=== PATIENT | male | born 1985 | race Hispanic/Latino ===

== ENCOUNTER 2022-03-02 13:51 | Emergency (ER) | payer OTHER ==
[~2022-03-02] VITALS: Ht 165.1 cm; Wt 104.3 kg
[2022-03-02] MEDS ORDERED: SULFAMETHOX-TMP DS 800/160 TAB PO SCH (15:00)
[2022-03-02] MEDS ORDERED: KETOROLAC 30MG VIAL (30MG/ML) IM ONE (15:00)
[2022-03-02] MEDS ORDERED: NAPR500T6 PO (15:04)
[2022-03-02] MEDS ORDERED: SULF1TAB42 PO (15:04)
[2022-03-02 15:20] VITALS: BP 147/73
== END 2022-03-02 15:20 | disposition home or self-care (01) ==
LOC: EDH 13:51
DX: L03.115 Cellulitis of right lower limb (principal)
CPT/HCPCS: 96372; 99283; J1885

== ENCOUNTER 2022-04-07 11:16 | Emergency (ER) | payer SELFPAY ==
[~2022-04-07] VITALS: Ht 165.1 cm; Wt 106.6 kg
[~2022-04-07 11:16] MED LIST: NAPR500T6 PO; SULF1TAB42 PO
[2022-04-07 11:42] VITALS: BP 142/73
[2022-04-07] MEDS ORDERED: GUAIF10 PO (12:16)
[2022-04-07] MEDS ORDERED: IBUP-2070 PO (12:16)
[2022-04-07] MEDS ORDERED: BENZONATATE 100 MG CAPSULE PO SCH (12:30)
[2022-04-07] MEDS ORDERED: ACETAMINOPHEN 500 MG TABLET PO ONE (12:30)
== END 2022-04-07 12:33 | disposition home or self-care (01) ==
LOC: EDH 11:16
DX: U07.1 COVID-19 (principal); I10 Essential (primary) hypertension; Z79.1 Long term (current) use of non-steroidal anti-inflammatories (NSAID)
CPT/HCPCS: 99283; 87635; C9803

== ENCOUNTER 2022-12-06 21:47 | Emergency (ER) | payer BC ==
[~2022-12-06] VITALS: Ht 165.1 cm; Wt 103.9 kg
[~2022-12-06 21:47] MED LIST changes: +GUAIF10 PO; +IBUP-2070 PO
[2022-12-06 22:27] VITALS: BP 130/88
[2022-12-06 22:56] LABS: APPEARANCE,URINE CLEAR (CLEAR); BILIRUBIN,URINE NEGATIVE (NEGATIVE); COLOR,URINE LIGHT-YELLOW (YELLOW); GLUCOSE, URINE (UA) NEGATIVE (NEGATIVE); KETONES,URINE NEGATIVE (NEGATIVE); LEUKOCYTE ESTERASE ,URINE NEGATIVE Leu/uL (NEGATIVE); NITRATE,URINE NEGATIVE (NEGATIVE); OCCULT BLOOD,URINE NEGATIVE (NEGATIVE); PROTEIN,URINE 20 mg/dL (NEGATIVE); UROBILINOGEN,URINE 0.2 mg/dL (0.2-1.0)
[2022-12-06 22:59] LABS: MUCUS,URINE RARE LPF (None Seen); WBC,URINE 0-1 /HPF (0-1)
[2022-12-06] MEDS ORDERED: DOXY-252 PO (23:43)
[2022-12-07] MEDS ORDERED: METRONIDAZOLE 500 MG TABLET PO SCH
[2022-12-07] MEDS ORDERED: CEFTRIAXONE 500MG VIAL IM SCH
== END 2022-12-07 00:32 | disposition home or self-care (01) ==
LOC: EDH 21:47
DX: N34.2 Other urethritis (principal); I10 Essential (primary) hypertension; Z79.1 Long term (current) use of non-steroidal anti-inflammatories (NSAID)
CPT/HCPCS: 99284; 87797; 87486; 81001; 96372; J0696

== ENCOUNTER 2023-06-06 14:50 | Emergency (ER) | payer BC, OTHER ==
[~2023-06-06] VITALS: Ht 167.6 cm; Wt 108.9 kg
[~2023-06-06 14:50] MED LIST changes: +DOXY-252 PO
[2023-06-06 17:07] LABS: BASOPHILS # (AUTO) 0.06 K/uL (0.00-0.20); BASOPHILS % (AUTO) 0.7 % (0.0-5.0); EOSINOPHILS # (AUTO) 0.16 K/uL (0.00-0.70); EOSINOPHILS % (AUTO) 1.9 % (0.0-8.0); HEMATOCRIT 46.6 % (42-54); IMMATURE GRANULOCYTE ABSOLUTE 0.03 K/uL (0-1); LYMPHOCYTES # (AUTO) 1.9 K/uL (1.0-4.8); LYMPHOCYTES % (AUTO) 21.6 % (21.0-51.0); MEAN CORPUSCULAR HEMOGLOBIN 29.2 pg (27.0-33.0); MEAN CORPUSCULAR HGB CONC 33.5 g/dL (32.0-36.0); MEAN CORPUSCULAR VOLUME 87.1 fL (79-99); MONOCYTES % (AUTO) 11.3 % (3.0-13.0); NEUTROPHILS # (AUTO) 5.5 K/uL (1.8-7.7); NEUTROPHILS % (AUTO) 64.1 % (40.0-77.0); PLATELET COUNT (AUTO) 314 K/uL (130-400); RED BLOOD CELL COUNT(AUTO) 5.35 MIL/uL (4.50-6.20); RED CELL DISTRIBUTION WIDTH 13.1 % (11.0-15.5); WHITE BLOOD COUNT (AUTO) 8.6 K/uL (4.8-10.8)
[2023-06-06 17:11] LABS: APPEARANCE,URINE CLEAR (CLEAR); BILIRUBIN,URINE NEGATIVE (NEGATIVE); COLOR,URINE LIGHT-YELLOW (YELLOW); GLUCOSE, URINE (UA) NEGATIVE (NEGATIVE); KETONES,URINE NEGATIVE (NEGATIVE); LEUKOCYTE ESTERASE ,URINE NEGATIVE Leu/uL (NEGATIVE); NITRATE,URINE NEGATIVE (NEGATIVE); OCCULT BLOOD,URINE NEGATIVE (NEGATIVE); PH,URINE 5.5 (5.0-8.0); PROTEIN,URINE NEGATIVE (NEGATIVE); UROBILINOGEN,URINE 0.2 mg/dL (0.2-1.0)
[2023-06-06 17:21] LABS: ADD UA MICROSCOPIC YES; CREATININE 0.9 mg/dL (0.5-1.5); POTASSIUM 3.8 mmol/L (3.5-5.1)
[2023-06-06 17:23] LABS: BACTERIA,URINE RARE /HPF (None Seen); RBC,URINE 0-1 /HPF (0-1); WBC,URINE 0-1 /HPF (0-1)
[2023-06-06 17:28] LABS: ALBUMIN 3.8 g/dL (3.5-5.0); BILIRUBIN,TOTAL 0.6 mg/dL (0.2-1.0); TOTAL PROTEIN, SERUM 7.6 g/dL (6.0-8.3)
[2023-06-06] MEDS ORDERED: DOXY100C5 PO (19:17)
[2023-06-06] MEDS ORDERED: DOCU-116 PO (19:21)
[2023-06-06] MEDS ORDERED: CEFTRIAXONE 1G VIAL IM ONE (19:30)
[2023-06-06 19:35] VITALS: BP 138/62; PULSE 64; RESP 16; O2SAT 98
== END 2023-06-06 19:57 | disposition home or self-care (01) ==
LOC: EDH 14:50
DX: R30.0 Dysuria (principal); I10 Essential (primary) hypertension; Z20.2 Contact with and (suspected) exposure to infections with a predominantly sexual mode of transmission; Z79.899 Other long term (current) drug therapy
CPT/HCPCS: 99283; 80053; 83690; 85025; 87797; 87486; 81001; 36415; 96372; J0696

== ENCOUNTER 2024-06-23 02:32 | Emergency (ER) | payer BC ==
[~2024-06-23] VITALS: Ht 165.1 cm; Wt 113.4 kg
[~2024-06-23 02:32] MED LIST changes: +DOCU-116 PO; +DOXY100C5 PO; +NAPR-1506 PO; -NAPR500T6 PO
[2024-06-23] MEDS: ketOROlac 15MG/ML VIAL (15MG/ML) IV ONE (03:00)
[2024-06-23 03:20] LABS: BASOPHILS # (AUTO) 0.06 K/uL (0.00-0.20); BASOPHILS % (AUTO) 0.6 % (0.0-5.0); EOSINOPHILS # (AUTO) 0.17 K/uL (0.00-0.70); EOSINOPHILS % (AUTO) 1.8 % (0.0-8.0); HEMATOCRIT 43.9 % (42-54); IMMATURE GRANULOCYTE ABSOLUTE 0.06 K/uL (0-1); LYMPHOCYTES # (AUTO) 1.5 K/uL (1.0-4.8); LYMPHOCYTES % (AUTO) 15.6 % (21.0-51.0); MEAN CORPUSCULAR HEMOGLOBIN 28.4 pg (27.0-33.0); MEAN CORPUSCULAR HGB CONC 33.5 g/dL (32.0-36.0); MEAN CORPUSCULAR VOLUME 84.7 fL (79-99); MONOCYTES # (AUTO) 0.8 K/uL (0.1-1.0); MONOCYTES % (AUTO) 8.6 % (3.0-13.0); NEUTROPHILS # (AUTO) 6.9 K/uL (1.8-7.7); NEUTROPHILS % (AUTO) 72.8 % (40.0-77.0); PLATELET COUNT (AUTO) 317 K/uL (130-400); RED BLOOD CELL COUNT(AUTO) 5.18 MIL/uL (4.50-6.20); RED CELL DISTRIBUTION WIDTH 12.9 % (11.0-15.5); WHITE BLOOD COUNT (AUTO) 9.4 K/uL (4.8-10.8)
[2024-06-23 03:28] LABS: CREATININE 0.9 mg/dL (0.5-1.3); POTASSIUM 3.7 mmol/L (3.5-5.1)
[2024-06-23 04:29] VITALS: BP 122/80; PULSE 64; RESP 20; TEMP 98.6; O2SAT 100
== END 2024-06-23 04:31 | disposition home or self-care (01) ==
LOC: EDH 02:32
DX: M79.7 Fibromyalgia (principal); I10 Essential (primary) hypertension; Z79.899 Other long term (current) drug therapy
CPT/HCPCS: 99284; 74176; 96374; 80048; 85025; 36415; J1885

== ENCOUNTER 2024-12-04 01:00 | Emergency (ER) | payer BC ==
[~2024-12-04] VITALS: Ht 165.1 cm; Wt 113.4 kg
[~2024-12-04 01:00] MED LIST changes: +GUAI100L96 PO; -GUAIF10 PO
[2024-12-04 01:24] LABS: BASOPHILS # (AUTO) 0.06 K/uL (0.00-0.20); BASOPHILS % (AUTO) 0.6 % (0.0-5.0); EOSINOPHILS % (AUTO) 2.1 % (0.0-8.0); HEMATOCRIT 45.3 % (42-54); IMMATURE GRANULOCYTE ABSOLUTE 0.07 K/uL (0-1); LYMPHOCYTES # (AUTO) 2.5 K/uL (1.0-4.8); LYMPHOCYTES % (AUTO) 25.5 % (21.0-51.0); MEAN CORPUSCULAR HEMOGLOBIN 28.3 pg (27.0-33.0); MEAN CORPUSCULAR HGB CONC 33.1 g/dL (32.0-36.0); MEAN CORPUSCULAR VOLUME 85.5 fL (79-99); MONOCYTES # (AUTO) 1.1 K/uL (0.1-1.0); MONOCYTES % (AUTO) 11.2 % (3.0-13.0); NEUTROPHILS # (AUTO) 5.8 K/uL (1.8-7.7); NEUTROPHILS % (AUTO) 59.9 % (40.0-77.0); PLATELET COUNT (AUTO) 368 K/uL (130-400); RED CELL DISTRIBUTION WIDTH 13.2 % (11.0-15.5); WHITE BLOOD COUNT (AUTO) 9.8 K/uL (4.8-10.8)
--- NOTE | 2024-12-04 01:25 | ERN ---
ED Note History of Present Illness Stated Complaint: SOB Chief Complaint: Shortness of Breath Time Seen by MD: 01:04 Time Seen by Midlevel: 01:10 Dictation: Mr. Moe is a 39 year old male with history of hypertension, hyperlipidemia and obesity who presented to the emergency department this morning for evaluation of dyspnea. He states that he has been experiencing anterior chest pain/pressure radiating to the left arm which he rated 4/10. He states he also has felt some tingling to the left side of his face as well as shortness of breath. He states the pain began while he was sitting at work (works at a [employer]). He states he also has some pain and swelling to his left calf. He denies use of alcohol or recreational drugs. Patient is a former smoker. He denies having fever, chills, cough, palpitations, abdominal pain, nausea, vomiting, diarrhea, dysuria, diaphoresis, headache, focal weakness/paresthesia or dizziness. He states he had recent appointment with his PCP, Dr. Kulwant De Dios, and he was told that he did not have diabetes but that his cholesterol was slightly elevated. Allergies: Coded Allergies: No Known Drug Allergies (Unverified Allergy, Unknown, 03/02/22) Home Meds Active Scripts Docusate Sodium (Colace) 100 Mg Capsule, 100 MG PO TID for constipation for 30 Days, #30 CAP 0 Refills Take with 16 oz water each dose Prov:MEGA GARCIA 06/06/23 Doxycycline Hyclate (Doxycycline Hyclate) 100 Mg Capsule, 100 MG PO BID for 7 Days, #14 CAP Prov:MEGA GARCIA 06/06/23 Doxycycline Hyclate (Doxycycline Hyclate) 100 Mg Tablet., 100 MG PO BID for 10 Days, #20 TAB 0 Refills Prov:MARIELA CABRERA MD 12/06/22 Guaifenesin (Robitussin Syrp) 100 Mg/5 Ml Syrp, 200 MG PO Q4PRN PRN for COUGH/COLD SYMPTOMS, #300 ML Prov:CHASE PEREZ 04/07/22 Ibuprofen (Ibuprofen) 600 Mg Tablet, 600 MG PO Q6H PRN for PAIN, #15 TAB Prov:CHASE PEREZ 04/07/22 Naproxen (Naproxen) 500 Mg Tablet.dr, 500 MG PO BIDPC, #15 TAB Prov:CHASE PEREZ RN MIDWIFE 03/02/22 Sulfamethoxazole/Trimethoprim (Bactrim Ds Tablet) 1 Each Tablet, 1 TAB PO BID for 7 Days, #14 TAB 0 Refills Prov:CHASE PEREZ RN MIDWIFE 03/02/22 Reported Medications Lisinopril (Lisinopril) 5 Mg Tablet, 1 TAB PO DAILY for 30 Days, #30 TAB 0 Refills 12/04/24 Past Medical History Past Medical History: High Cholesterol, Hypertension, Other (Obesity) Surgical History: None PSYCH History: no pertinent psych hx Family History: DM, HTN Social History: Smokers (Former) RN Note Reviewed/Agreed w/PFSH: Yes Review of System Dictation REVIEW OF SYSTEMS: CONSTITUTIONAL: Patient denies fevers, chills, sweats and weight changes. EYES: Patient denies any visual symptoms. EARS, NOSE, AND THROAT: No difficulties with hearing. No symptoms of rhinitis or sore throat. CARDIOVASCULAR: Patient palpitations, orthopnea and paroxysmal nocturnal dyspnea. Reported left-sided chest pain/pressure radiating to the left arm. RESPIRATORY: No wheezing or cough. Reports shortness of breath GI: No nausea, vomiting, diarrhea, constipation, abdominal pain, hematochezia or melena. : No urinary hesitancy or dribbling. No nocturia or urinary frequency. No abnormal urethral discharge. MUSCULOSKELETAL: Reports pain and swelling to the right calf. NEUROLOGIC: No chronic headaches, no seizures. Patient denies numbness, tingling or weakness. PSYCHIATRIC: Patient denies problems with mood disturbance. No problems with anxiety. ENDOCRINE: No excessive urination or excessive thirst. DERMATOLOGIC: Patient denies any rashes or skin changes. Initial Vital Sign VS Vital Signs Date Time Temp Pulse Resp B/P (MAP) Pulse Ox O2 Delivery O2 Flow Rate FiO2 12/04/24 01:02 98.1 66 18 153/98 99 Room Air 0 12/04/24 01:21 21 Physical Exam Dictation Vital signs: Reviewed. Afebrile Constitutional: No acute distress. Non-toxic appearing. Head/Face: Normocephalic, atraumatic. Eyes: Periorbital areas with no swelling, redness, or edema. Lids and lashes are normal. Conjunctival injection is absent. Sclera anicteric. Pupils equal, round, reactive to light. ENT: Pinnas intact and no signs of trauma or erythema. Ear canals clear and no discharge. TMs no erythema. No nasal discharge or bleeding noted. Oropharynx w ith no exudate, redness, swelling, masses, exudates, or evidence of obstruction. Uvula midline. Mucous membranes moist. Neck: Trachea midline, no masses palpated, and no cervical lymphadenopathy. No swelling. Supple, full range of motion. Chest/Axilla: No tenderness, no crepitus, no paradoxical movement, no retractions. Cardiovascular: Regular rate, regular rhythm, no murmur, no gallops. Symmetric pulses. No peripheral edema. Twelve lead EKG reflects a sinus rhythm without ST elevation or depression. BP 153/98. Chest pain 4/10 Respiratory: Respirations even and unlabored. Lung sounds clear; no wheezes, rales or rhonchi. Room air SpO2 99% Gastrointestinal: Obese No distention is appreciated. Bowel sounds are normal. No mass or organomegaly . There is no tenderness. No rebound. No rigidity. No voluntary or involuntary guarding. No Prieto's sign. Neurological: Normal speech, gross motor function intact, gross sensory function intact. No focal weakness/Paresthesia. Musculoskeletal/Extremities: All extremities have full range of motion. Symmetric pulses. There is nonpitting edema of the right lower extremity. Tenderness upon palpation right calf. Integumentary: Intact. Skin is normal color, warm and dry. Cap refill less than 3 seconds. Results (Laboratory/Radiology) Laboratory/Radiology Laboratory Tests Test 12/04/24 01:13 12/04/24 01:23 White Blood Count 9.8 K/uL (4.8-10.8) Red Blood Count 5.30 MIL/uL (4.50-6.20) Hemoglobin 15.0 g/dL (14.0-18.0) Hematocrit 45.3 % (42-54) Mean Corpuscular Volume 85.5 fL (79-99) Mean Corpuscular Hemoglobin 28.3 pg (27.0-33.0) Mean Corpuscular Hemoglobin Concent 33.1 g/dL (32.0-36.0) Red Cell Distribution Width 13.2 % (11.0-15.5) Platelet Count 368 K/uL (130-400) Mean Platelet Volume 9.4 fL (7.5-10.5) Immature Granulocyte % (Auto) 0.7 % (0-1) Neutrophils (%) (Auto) 59.9 % (40.0-77.0) Lymphocytes (%) (Auto) 25.5 % (21.0-51.0) Monocytes (%) (Auto) 11.2 % (3.0-13.0) Eosinophils (%) (Auto) 2.1 % (0.0-8.0) Basophils (%) (Auto) 0.6 % (0.0-5.0) Neutrophils # (Auto) 5.8 K/uL (1.8-7.7) Lymphocytes # (Auto) 2.5 K/uL (1.0-4.8) Monocytes # (Auto) 1.1 K/uL (0.1-1.0) H Eosinophils # (Auto) 0.20 K/uL (0.00-0.70) Basophils # (Auto) 0.06 K/uL (0.00-0.20) Absolute Immature Granulocyte (auto 0.07 K/uL (0-1) Nucleated Red Blood Cells 0.0 % (0.0-0.19) Sodium Level 134 mmol/L (136-145) L Potassium Level 3.8 mmol/L (3.5-5.1) Chloride Level 97 mmol/L (101-111) L Carbon Dioxide Level 34 mmol/L (21-32) H Blood Urea Nitrogen 14 mg/dL (7-18) Creatinine 1.0 mg/dL (0.5-1.3) Glomerular Filtration Rate Calc 99 mL/min (>90) Random Glucose 94 mg/dL (70-105) Total Calcium 9.1 mg/dL (8.5-10.1) Total Bilirubin 0.5 mg/dL (0.2-1.0) Direct Bilirubin 0.1 mg/dL (0.0-0.3) Aspartate Amino Transf (AST/SGOT) 24 U/L (10-37) Alanine Aminotransferase (ALT/SGPT) 45 U/L (12-78) Alkaline Phosphatase 97 U/L (50-136) Troponin I High Sensitivity 7 ng/L (4-75) B-Type Natriuretic Peptide < 5 pg/mL (0-100) Total Protein 8.1 g/dL (6.0-8.3) Albumin 3.7 g/dL (3.5-5.0) Influenza Type A Antigen Negative For Type A Influenza Type B Antigen Negative For Type B SARS-CoV-2, RNA, NAAT NEGATIVE SARS CoV-2 Group A Streptococcus Rapid positive (NEGATIVE) *A Labs Reviewed?: Yes EKG Comment: EKG Interpretation: Time Reviewed: 112 Ventricular rate: 56 bpm DC Interval: 182 ms QRS duration: [address] segment elevation or depression. Clinical impression: Sinus bradycardia EKG Reviewed and interpreted by Dr. Kang Jansen ED Course ED Course Orders Procedure Category Date Status Time Aspirin 325mg Tab PHA 12/04/24 Complete (Aspirin 325mg Tab) 01:30 12 Lead Ekg Tracing- EKG 12/04/24 Logged Technical 01:10 Chest 1vw RAD 12/04/24 Taken 01:10 Drug Screen Urine LAB 12/04/24 Logged 01:10 Cbc With Differential LAB 12/04/24 Complete 01:10 Basic Metabolic Panel LAB 12/04/24 Complete 01:10 Hepatic Function Panel LAB 12/04/24 Complete 01:10 Troponin I High LAB 12/04/24 Complete Sensitivity 01:10 Nitroglycerin 1gm PHA 12/04/24 Complete Oint (Nitroglycerin 1g 01:30 Us Venous Doppler US 12/04/24 Taken Unilateral 01:19 Covid Rna Naat LAB 12/04/24 Complete 01:20 Influenza Type A & B, LAB 12/04/24 Complete Rapid 01:20 Rapid (Group A Strep) LAB 12/04/24 Complete 01:20 D-Dimer LAB 12/04/24 In Process 01:26 B-Type Natriuretic LAB 12/04/24 In Process Peptide 01:26 Rapid (Group A Strep) LAB 12/04/24 Logged 01:59 Ceftriaxone 1g Vial PHA 12/04/24 Complete (Rocephine 1g Inj) 02:00 Current Medications Medications (Trade) Dose Ordered Sig/Tayler Route PRN Reason Start Time Stop Time Status Last Admin Dose Admin Aspirin (Aspirin 325mg Tab) 325 mg ONCE ONCE PO 12/04/24 01:30 12/04/24 01:31 DC 12/04/24 01:42 Ceftriaxone Sodium (ROCEphine 1G INJ) 1 gm ONCE ONCE IVPB 12/04/24 02:00 12/04/24 02:04 DC 12/04/24 02:19 Nitroglycerin (Nitroglycerin 1gm Oint) 0.5 inch ONCE ONCE TD 12/04/24 01:30 12/04/24 01:31 DC 12/04/24 01:42 Vital Signs Date Time Temp Pulse Resp B/P (MAP) Pulse Ox O2 Delivery O2 Flow Rate FiO2 12/04/24 01:21 98.2 66 20 157/81 99 Room Air* 0 21 12/04/24 01:02 98.1 66 18 153/98 99 Room Air 0 Twelve lead EKG reflects a sinus bradycardia without ST elevation or depression. Chest x-ray unremarkable. Laboratory findings as noted below. COVID and influenza A/B negative. Strep positive. No elevation of WBCs. H&H are stable. Na/Cl 134/97, and CO2 34. Troponin negative x2 HEART score=2. Venous ultrasound of the right lower extremity negative for DVT. He received doses aspirin 325, topical and NTG 1/2 inch, Toradol 15 mg IV and Rocephin 1 g IV. Chest pain now resolved; states he is feeling much better. Ambulating with steady gait. HEART Score Response (Comments) Value History: Moderate suspicion (+1) 1 EKG: Normal 0 Age: < 45yrs (0) 0 Risk Factors: 1-2 risk factors (+1) 1 Initial Troponin: Normal limit (0) 0 HEART Score Risk: Low Risk for MACE (1-3) Total 2 Medical Decision Making MDM MDM: Differential diagnosis: ACS, CPAP, viral illness. Lower extremity DVT Rationale: Tests considered and ordered secondary to shared decision making include: Lab, EKG, x-ray, U/S Previous outside records reviewed: Old ER visits. Risk of complication and/or morbidity or mortality of patient management: None Medications-Per medication reconciliation Need for hospitalization: Patient does not meet criteria for hospitalization. Need for emergency major/minor surgery: No There are no social concerns with this patient. Prescription drug management: Pen VK, ibuprofen Prescriptions will include symptomatic care Patient's prior external medical records from other ER visits were reviewed by me as indicated. Prior testing and results from previous visits were reviewed. Prior tests were taken into account with medical decision making and resource utilization, independent historian/historians were used to obtain complete medical history. I independently interpreted the test that were performed, results were reviewed by me and considered findings on radiology if ordered. Medical management and examination interpretation discussions were had by me with other qualified healthcare professionals as indicated for the patient's care. DX & DISP Disposition: Discharge Departure Impression: Primary Impression: Chest pain Additional Impressions: Strep throat, Hypertension, Calf pain; negative for deep vein thrombosis Condition: Stable Scripts Ibuprofen (Ibuprofen) 600 Mg Tablet 600 MG PO q8 hours PRN PRN for PAIN, #12 TAB 0 Refills Prov: NEVIN RALPH NP 12/04/24 Penicillin V Potassium (Penicillin V Potassium) 500 Mg Tablet 1 TAB PO BID for 10 Days, #20 TAB 0 Refills Prov: NEVIN RALPH NET WEB DEVELOPER 12/04/24 Additional Instructions: Rest. Continue all current medications. Keep log of blood pressure readings for follow up at your PCP's office. Continue antibiotic with pen VK 500mg twice daily for 10 days. May take ibuprofen 600 mg every 8 hours as needed for discomfort. May try warm pack for lower extremity discomfort. Follow up with Dr. De Dios this week. Return to the emergency department for any worsening of symptoms or concerns. Referrals: LINDA DE DIOS (PCP) Time of Disposition: 02:30 NEVIN RALPH NET WEB DEVELOPER Dec 04, 2024 01:25
[2024-12-04 01:32] LABS: POTASSIUM 3.8 mmol/L (3.5-5.1)
[2024-12-04 01:37] LABS: ALBUMIN 3.7 g/dL (3.5-5.0); BILIRUBIN,DIRECT 0.1 mg/dL (0.0-0.3); BILIRUBIN,TOTAL 0.5 mg/dL (0.2-1.0); TOTAL PROTEIN, SERUM 8.1 g/dL (6.0-8.3)
[2024-12-04] MEDS: ASPIRIN 325MG TAB PO ONE (01:42)
[2024-12-04] MEDS: NITROGLYCERIN 1GM OINT 1 INCH/1GM TD ONE (01:42)
[2024-12-04 01:55] LABS: SARS-CoV-2, RNA, NAAT NEGATIVE SARS CoV-2 (NEGATIVE)
[2024-12-04 01:57] LABS: RAPID GROUP A STREP positive (NEGATIVE)
[2024-12-04 01:58] LABS: INFLUENZA TYPE A Negative For Type A (NEGATIVE); INFLUENZA TYPE B Negative For Type B (NEGATIVE)
[2024-12-04] MEDS ORDERED: LISI5TAB21 PO (02:03)
[2024-12-04] MEDS: cefTRIAXone 1G VIAL IVPB ONE (02:19)
[2024-12-04] MEDS ORDERED: PENI500T2 PO (02:27)
[2024-12-04] MEDS ORDERED: IBUP-2070 PO (02:27)
[2024-12-04] MEDS: ketOROlac 15MG/ML VIAL (15MG/ML) IV ONE (02:36)
[2024-12-04] MEDS: ketOROlac 15MG/ML VIAL (15MG/ML) ONE (02:40)
[2024-12-04 03:22] VITALS: BP 139/79; PULSE 60; RESP 18; TEMP 98; O2SAT 99
--- NOTE | 2024-12-04 06:27 | EKG ---
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
--- NOTE | 2024-12-04 11:30 | HMCIMG ---
PORTABLE CHEST RADIOGRAPH INDICATION: shortness of breath COMPARISON: None FINDINGS: nuclear monitoring technician leads overlie the field of view. Heart size is normal. The pulmonary vascularity and anel appear normal. No abnormal pulmonary parenchymal opacity or consolidation identified. No significant pleural effusion noted. No pneumothorax detected. IMPRESSION: No radiographic evidence for any acute cardiopulmonary process.
--- NOTE | 2024-12-04 11:31 | HMCIMG ---
ULTRASOUND VENOUS DOPPLER RIGHT LOWER EXTREMITY INDICATION: Pain and swelling. TECHNIQUE: Routine grayscale and color Doppler ultrasound of the right lower extremity veins performed. COMPARISON: None. FINDINGS: The demonstrated veins of the right lower extremity including the common femoral vein, femoral vein, and popliteal vein are associated with normal compressibility, augmentation, and flow. Normal respiratory variation was identified. No evidence for echogenic intraluminal thrombus. IMPRESSION: No evidence for deep venous thrombosis.
== END 2024-12-04 03:23 | disposition home or self-care (01) ==
LOC: EDH 01:00
DX: R07.89 Other chest pain (principal); J02.0 Streptococcal pharyngitis; M79.661 Pain in right lower leg; I10 Essential (primary) hypertension; E66.9 Obesity, unspecified; E78.00 Pure hypercholesterolemia, unspecified; F17.200 Nicotine dependence, unspecified, uncomplicated; Z79.899 Other long term (current) drug therapy; Z68.41 Body mass index [BMI] 40.0-44.9, adult; Z20.822 Contact with and (suspected) exposure to COVID-19
CPT/HCPCS: 99284; 96374; 93971; 71045; 87635; 96375; 80076; 84484 ×2; 80048; 83880; 85025; 85378; 87880; 87804 ×2; 36415; 93005; J1885; J0696

== ENCOUNTER 2025-01-31 21:23 | Emergency (ER) | payer BC ==
[~2025-01-31] VITALS: Ht 165.1 cm; Wt 108.9 kg
[~2025-01-31 21:23] MED LIST changes: +LISI5TAB21 PO; +PENI500T2 PO
--- NOTE | 2025-01-31 21:27 | NUR ---
COVID, FLU AND STREP COLLECTED AND SENT
[2025-01-31 21:44] LABS: RAPID GROUP A STREP negative (NEGATIVE)
[2025-01-31 21:46] LABS: SARS-CoV-2, RNA, NAAT NEGATIVE SARS CoV-2 (NEGATIVE)
[2025-01-31 21:54] LABS: INFLUENZA TYPE A Negative For Type A (NEGATIVE); INFLUENZA TYPE B Negative For Type B (NEGATIVE)
[2025-02-01] MEDS: IpraTROPium/alBUTERol SULFATE 3 ML SOLUTION IH ONE (00:02)
--- NOTE | 2025-02-01 00:02 | NUR ---
ASSUMED CARE AT THIS TIME PT MOVED TO [facility]
[2025-02-01 00:03] VITALS: PULSE 73; RESP 20
[2025-02-01] MEDS: dexaMETHasone SOD PHOSPHATE 4 MG/ML 1ML VIAL IM ONE (00:12)
--- NOTE | 2025-02-01 00:13 | ERN ---
ED Note History of Present Illness Stated Complaint: FLUU+, COUGH Chief Complaint: Influenza Time Seen by MD: 21:44 Time Seen by Midlevel: 21:44 Dictation: The Patient is a 39-year-old male with history of hypertension who presents to the emergency department with complaints of a cough with green phlegm, low-grade fevers onset Tuesday. Patient reported that he was seen at another hospital was diagnosed with influenza. Allergies: Coded Allergies: No Known Drug Allergies (Unverified Allergy, Unknown, 03/02/22) Home Meds Active Scripts Ibuprofen (Ibuprofen) 600 Mg Tablet, 600 MG PO q8 hours PRN PRN for PAIN, #12 TAB 0 Refills Prov:NEVIN RALPH EXPERIMENTAL FLIGHT TEST MECHANIC 12/04/24 Penicillin V Potassium (Penicillin V Potassium) 500 Mg Tablet, 1 TAB PO BID for 10 Days, #20 TAB 0 Refills Prov:NEVIN RALPH EXPERIMENTAL FLIGHT TEST MECHANIC 12/04/24 Docusate Sodium (Colace) 100 Mg Capsule, 100 MG PO TID for constipation for 30 Days, #30 CAP 0 Refills Take with 16 oz water each dose Prov:MEGA GARCIA 06/06/23 Doxycycline Hyclate (Doxycycline Hyclate) 100 Mg Capsule, 100 MG PO BID for 7 Days, #14 CAP Prov:MEGA GARCIA 06/06/23 Doxycycline Hyclate (Doxycycline Hyclate) 100 Mg Tablet.dr, 100 MG PO BID for 10 Days, #20 TAB 0 Refills Prov:MARIELA CABRERA MD 12/06/22 Guaifenesin (Robitussin Syrp) 100 Mg/5 Ml Syrp, 200 MG PO Q4PRN PRN for COUGH/COLD SYMPTOMS, #300 ML Prov:CHASE PEREZ 04/07/22 Ibuprofen (Ibuprofen) 600 Mg Tablet, 600 MG PO Q6H PRN for PAIN, #15 TAB Prov:CHASE PEREZ 04/07/22 Naproxen (Naproxen) 500 Mg Tablet., 500 MG PO BIDPC, #15 TAB Prov:CHASE PEREZ 03/02/22 Sulfamethoxazole/Trimethoprim (Bactrim Ds Tablet) 1 Each Tablet, 1 TAB PO BID for 7 Days, #14 TAB 0 Refills Prov:CHASE PEREZ 03/02/22 Reported Medications Lisinopril (Lisinopril) 5 Mg Tablet, 1 TAB PO DAILY for 30 Days, #30 TAB 0 Refills 12/04/24 Past Medical History Past Medical History: High Cholesterol, Hypertension, Other Surgical History: None Family History: DM, HTN Social History: Smokers RN Note Reviewed/Agreed w/PFSH: Yes Review of System Dictation Constitutional: Negative for ,chills, and weight loss positive for fever Eyes: Negative for injury, pain,redness, and discharge ENT: Negative for injury,pain or swelling Cardiovascular: Negative for chest pain, palpitations, and edema Respiratory: Negative for wheezing, positive for shortness of breath, cough Abdomen/GI: Negative for abdominal pain, nausea, vomiting, diarrhea, and constipation Back: Negative for injury and pain : Negative for injury, bleeding and discharge MS/Extremity: Negative for injury and deformity Skin: Negative for rash, and discoloration Neuro: Negative for headache, weakness, numbness, tingling, and seizure Psych: Negative for suicide ideation, homicidal ideation, and hallucinations Initial Vital Sign VS Vital Signs Date Time Temp Pulse Resp B/P (MAP) Pulse Ox O2 Delivery O2 Flow Rate FiO2 01/31/25 21:24 98.2 72 16 145/79 98 Room Air 02/01/25 00:18 0 21 Physical Exam Dictation Vital Signs reviewed General Appearance: Alert, oriented x 3, no acute distress, well developed, nourished. Head and Face: non-traumatic. Eyes: PERRL, pink conjunctivas, eyelid no trauma, anterior chamber with arcus senilis. Ears: Pinnas intact and no signs of trauma or erythema ear canals clear and no discharge TM no erythema Nose: No discharge, no bleeding. Oropharynx: Mouth normal, tongue pink. pharynx clear,no erythema, tonsils no exudates, no abscesses noted, mucous membrane moist Neck: Supple, non-tender, no thyromegaly, no masses, no JVD, no bruits Breast:Deferred Chest:No tenderness, no crepitus, no paradoxical movement, no retractions Lungs:Clear, well-ventilated, symmetric, no rales, no wheezing, no rhonchi, no stridor, good breath sounds bilaterally Heart: Regular rate, regular rhythm, no murmur, no gallops Vascular: no peripheral edema, Abdomen: Soft, positive bowel sounds, nondistended, no guarding, nontender, no rebound, no masses no hepatomegaly, no splenomegaly, no Prieto's sign, no hernias. Rectal: Deferred Genital: Deferred Neurological: Normal speech, motor function intact, sensory function intact Musculoskeletal: Neck nontender, full range of motion, back nontender, full range of motion, Extremities: nontender, full range of motion Skin: Color pink, dry, no turgor, no rash, no lacerations, no abrasions, no contusions. Lymphatic: Deferred Results (Laboratory/Radiology) Laboratory/Radiology Laboratory Tests Test 01/31/25 21:26 Influenza Type A Antigen Negative For Type A Influenza Type B Antigen Negative For Type B SARS-CoV-2, RNA, NAAT NEGATIVE SARS CoV-2 Group A Streptococcus Rapid negative (NEGATIVE) ED Course ED Course Orders Procedure Category Date Status Time Covid Rna Naat LAB 01/31/25 Complete 21:26 Influenza Type A & B, LAB 01/31/25 Complete Rapid 21:26 Rapid (Group A Strep) LAB 01/31/25 Complete 21:26 Chest 1vw RAD 01/31/25 Taken 21:50 Dexamethasone 4mg/Ml PHA 01/31/25 Complete 1ml Vial (Dexametha 22:00 Ipratropium/Albuterol PHA 01/31/25 Complete Neb (Duoneb) 22:00 Current Medications Medications (Trade) Dose Ordered Sig/Tayler Route PRN Reason Start Time Stop Time Status Last Admin Dose Admin Albuterol (DUOneb) 1 UDVIAL ONCE ONCE IH 01/31/25 22:00 01/31/25 22:01 DC 02/01/25 00:02 Dexamethasone Sodium Phosphate (dexaMETHasone 4MG/ML 1ML VIAL) 6 mg ONCE ONCE IM 01/31/25 22:00 01/31/25 22:01 DC 02/01/25 00:12 Vital Signs Date Time Temp Pulse Resp B/P (MAP) Pulse Ox O2 Delivery O2 Flow Rate FiO2 02/01/25 00:18 98.2 78 16 139/77 98 Room Air* 0 21 02/01/25 00:03 73 20 01/31/25 21:24 98.2 72 16 145/79 98 Room Air Medical Decision Making MDM The Patient is a 39-year-old male with history of hypertension who presents to the emergency department with complaints of a cough with green phlegm, low-grade fevers onset Tuesday. Patient reported that he was seen at another hospital was diagnosed with influenza. Serology negative. X-ray showed no acute consolidation. Patient in no acute distress, clear lung sounds, nontoxic appearance, stable vital assessed we will be discharged to follow up with PCP. Differential diagnosis: Pneumonia, upper respiratory infection, bronchitis, pneumothorax Need for hospitalization: Patient does not meet criteria for hospitalization. There are no social concerns with this patient. DX & DISP Disposition: Discharge Departure Impression: Primary Impression: URI (upper respiratory infection) Additional Impression: Cough Condition: Stable Additional Instructions: Please follow up with the primary doctor in 1-2 days. If symptoms worsen please return to ER. FOLLOW-UP WITH PRIMARY CARE PROVIDER IN 1 TO 2 DAYS. TAKE MEDICATIONS DIRECTED HERE IN THE EMERGENCY ROOM. OKAY TO CONTINUE HOME MEDICATIONS UNLESS OTHERWISE DISCUSSED DURING YOUR VISIT IN THE EMERGENCY ROOM TODAY. RETURN TO YOUR NEAREST EMERGENCY ROOM IF SYMPTOMS WORSEN OR IF THERE IS NO IMPROVEMENT. CALL 911 IF YOU NEED IMMEDIATE ASSISTANCE. TAKE TYLENOL OR MOTRIN [id number] NEEDED AND IF NO CONTRAINDICATIONS ARE PRESENT. INCREASE ORAL HYDRATION. A WOUND CULTURE OR URINE CULTURE WAS ORDERED HERE IN THE EMERGENCY ROOM DEPARTMENT PLEASE FOLLOW-UP WITH PRIMARY CARE PROVIDER AND ADVISE THEM TO GET REPEAT PORTS FROM OUR FACILITY. IF YOU HAD ANY ANUSHA WRAP/SPLINTS THAT WERE APPLIED HERE, PLEASE DO NOT REMOVE THEM UNTIL YOU SEE YOUR PRIMARY CARE OR SPECIALTY. Referrals: LINDA MOURA (PCP) Time of Disposition: 00:23 I have reviewed the case, and I agree with, Diagnosis and Plan SO TREVIÑO February 01, 2025 00:12
[2025-02-01 00:18] VITALS: BP 139/77; PULSE 78; RESP 16; TEMP 98.2; O2SAT 98
--- NOTE | 2025-02-01 08:42 | HMCIMG ---
Exam Type: CHEST 1VW Clinical Information: cough Comparison: None Findings: The lungs are clear of infiltrates. The heart is normal in size. The bony and soft tissue structures of the chest are unremarkable. Impression: Clear lungs.
== END 2025-02-01 00:30 | disposition home or self-care (01) ==
LOC: EDH 21:23
DX: J06.9 Acute upper respiratory infection, unspecified (principal); R05.9 Cough, unspecified; E78.00 Pure hypercholesterolemia, unspecified; I10 Essential (primary) hypertension; F17.200 Nicotine dependence, unspecified, uncomplicated; Z79.899 Other long term (current) drug therapy; Z20.822 Contact with and (suspected) exposure to COVID-19
CPT/HCPCS: 99284; 71045; 87635; 87880; 87804 ×2; 96372; 94640; J1100